=== PATIENT | male | born 1960 | race Asian ===

== ENCOUNTER 2017-02-14 10:58 | Emergency (ER) | payer BC ==
[~2017-02-14] VITALS: Ht 175.3 cm; Wt 77.1 kg
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
[2017-02-14 12:21] VITALS: BP 115/80
== END 2017-02-14 12:24 | disposition home or self-care (01) ==
LOC: ER 11:00
DX: S20.219A Contusion of unspecified front wall of thorax, initial encounter (principal); Z85.9 Personal history of malignant neoplasm, unspecified; V49.49XA Driver injured in collision with other motor vehicles in traffic accident, initial encounter; Y93.89 Activity, other specified; Y92.89 Other specified places as the place of occurrence of the external cause; Y99.9 Unspecified external cause status
CPT/HCPCS: 71010; 99283; A4606; Z7610